=== PATIENT | male | born 1955 | race Caucasian/White ===

== ENCOUNTER 2019-06-28 08:26 | Day surgery (SDC) | payer MEDICARE ==
[~2019-06-28 08:26] MED LIST: ASPIRIN LOW DOS81 M1 PO; CRESTOR10 MG PO; DICLOFENAC SODIUM1 %; LISINOPRIL10 MG PO; METFORMIN500 MG PO
[2019-06-28 11:01] VITALS: BP 104/57
== END 2019-06-28 11:20 | disposition home or self-care (01) ==
LOC: ENDO 08:26 → ORM 10:30 → ENDO 10:30
PROVIDERS: ATTEND Surgery
PROC: 0DBN8ZX Excision of Sigmoid Colon, Via Natural or Artificial Opening Endoscopic, Diagnostic (ICD-10-PCS; principal; 2019-06-28)
PROC: 0DBL8ZX Excision of Transverse Colon, Via Natural or Artificial Opening Endoscopic, Diagnostic (ICD-10-PCS; 2019-06-28)
DX: K63.5 Polyp of colon (principal); K57.30 Diverticulosis of large intestine without perforation or abscess without bleeding; E11.9 Type 2 diabetes mellitus without complications; I10 Essential (primary) hypertension; F17.210 Nicotine dependence, cigarettes, uncomplicated; Z79.84 Long term (current) use of oral hypoglycemic drugs; Z86.010 Personal history of colon polyps